=== PATIENT | male | born 1975 | race Caucasian/White ===

== ENCOUNTER 2022-02-20 08:43 | Emergency (ER) | payer OTHER ==
[~2022-02-20] VITALS: Ht 188 cm; Wt 107.0 kg
[2022-02-20 08:51] VITALS: BP 147/92
--- NOTE | 2022-02-20 09:08 | PHYS DOC ---
Past History Additional Past Medical Histor: chronic back pain Past Surgical History: Other Additional Past Surgical Histo: shoulder x 2, knee x 2, spinal implant Alcohol Use: Occasionally General Adult EDM: Chief Complaint: KNEE INJURY HPI: HPI: 46-year-old male presents with left knee pain. Several days ago he was going down a staircase and twisted his right ankle. He fell and struck his left knee on the corner of a concrete stair. The ankle is fine but he still has swelling and pain in the left knee. He was at work today and went to turn and change direction she had a sharp pain in the center of his knee. He decided he should come in for evaluation. He states that he does not feel unsteady, just painful. Most of the pain is the inferior half of the patella. Even light touch is painful. He has no other complaints this time. Review of Systems: Review of Systems: Constitutional: Denies fever or chills Eyes: Denies change in visual acuity HENT: Denies nasal congestion or sore throat Respiratory: Denies cough or shortness of breath Cardiovascular: Denies chest pain or edema GI: Denies abdominal pain, nausea, vomiting, bloody stools or diarrhea : Denies dysuria Musculoskeletal: Left knee pain Integument: Denies rash Neurologic: Denies headache, focal weakness or sensory changes Endocrine: Denies polyuria or polydipsia Lymphatic: Denies swollen glands Psychiatric: Denies depression or anxiety Allergies: Allergies: Allergies Coded Allergies Type Severity Reaction Last Updated Verified acetaminophen Allergy Unknown 02/20/22 Yes hydrocodone Allergy Unknown 02/20/22 Yes oxycodone Allergy Unknown 02/20/22 Yes tramadol Allergy Unknown 02/20/22 Yes Physical Exam: PE: Constitutional: Well developed, well nourished, no acute distress, non-toxic appearance. [] HENT: Normocephalic, atraumatic, bilateral external ears normal, oropharynx moist, no oral exudates, nose normal. [] Eyes: PERRLA, EOMI, conjunctiva normal, no discharge. [] Neck: Normal range of motion, no tenderness, supple, no stridor. [] Cardiovascular: Heart rate regular rhythm, no murmur [] Lungs & Thorax: Bilateral breath sounds clear to auscultation [] Abdomen: Bowel sounds normal, soft, no tenderness, no masses, no pulsatile masses. [] Skin: Warm, dry, no erythema, no rash. [] Back: No tenderness, no CVA tenderness. [] Extremities: Swelling of the left knee, abrasion. Solid end feel of ligaments, tenderness inferior half of patella and infrapatellar region. [] Neurologic: Alert and oriented X 3, normal motor function, normal sensory function, no focal deficits noted. [] Psychologic: Affect normal, judgement normal, mood normal. [] Current Patient Data: Vital Signs: Vital Signs Date Time Temp Pulse Resp B/P (MAP) Pulse Ox O2 Delivery O2 Flow Rate FiO2 02/20/22 08:51 97.4 76 16 147/92 (110) 99 Room Air EKG: EKG: [] Radiology/Procedures: Radiology/Procedures: [] Impressions: XR KNEE _4 VIEWS WITH PATELLA_LT History: Reason: fall, direct trauma / Spl. Instructions: / History: . Pain Technique: 4 views left knee Comparison: None. Findings: No dislocation. No acute fracture. Mild medial compartment joint space narrowing and spurring. Mild patellar spurring. No significant knee joint effusion. Impression: 1. No acute osseous abnormality. Electronically signed by: Ronald Dunn DO (02/20/2022 10:01 AM) [id number] DICTATED AND SIGNED BY: RONALD DUNN DO DATE: 02/20/22 0959 CC: ANIVAL MOON DO; MELY RODRIGUES MD ~ Heart Score: C/O Chest Pain: N/A Risk Factors: Risk Factors: DM, Current or recent (<one month) smoker, HTN, HLP, family history of CAD, obesity. Risk Scores: Score 0 - 3: 2.5% MACE over next 6 weeks - Discharge Home Score 4 - 6: 20.3% MACE over next 6 weeks - Admit for Clinical Observation Score 7 - 10: 72.7% MACE over next 6 weeks - Early Invasive Strategies Course & Med Decision Making: Course & Med Decision Making Pertinent Labs and Imaging studies reviewed. (See chart for details) The patient's x-rays negative for fracture. There are some chronic findings such as patellar spurring. See official read for details. I believe this should improve on its own with NSAID therapy and rest. The patient may need physical therapy if it persists. He will follow-up with his primary physician as needed. He is stable for discharge at this time. [] Dragon Disclaimer: Dragon Disclaimer: This electronic medical record was generated, in whole or in part, using a voice recognition dictation system. Departure Departure: Impression: Primary Impression: Left knee pain Disposition: HOME / SELF CARE / HOMELESS Condition: STABLE Referrals: MELY RODRIGUES MD (PCP) Patient Instructions: Knee Pain, [id number] ANIVAL MOON DO Feb 20, 2022 09:08
--- NOTE | 2022-02-20 10:04 | RAD ---
XR KNEE _4 VIEWS WITH PATELLA_LT History: Reason: fall, direct trauma / Spl. Instructions: / History: . Pain Technique: 4 views left knee Comparison: None. Findings: No dislocation. No acute fracture. Mild medial compartment joint space narrowing and spurring. Mild patellar spurring. No significant knee joint effusion. Impression: 1. No acute osseous abnormality. Electronically signed by: Jorge Llanos DO (02/20/2022 10:01 AM) [id number]
== END 2022-02-20 10:13 | disposition home or self-care (01) ==
LOC: ER 08:43
DX: S80.212A Abrasion, left knee, initial encounter (principal); G89.29 Other chronic pain; Z88.5 Allergy status to narcotic agent; Z88.6 Allergy status to analgesic agent; Z88.8 Allergy status to other drugs, medicaments and biological substances; W10.8XXA Fall (on) (from) other stairs and steps, initial encounter; Y93.89 Activity, other specified; Y92.89 Other specified places as the place of occurrence of the external cause; Y99.8 Other external cause status
CPT/HCPCS: 73564; 99283